=== PATIENT | female | born 1965 | race Caucasian/White ===

== ENCOUNTER 2020-09-27 09:59 | Inpatient (IN) | payer OTHER, MEDICARE ==
[~2020-09-27] VITALS: Ht 160 cm; Wt 59.4 kg
[2020-09-27] MEDS ORDERED: ONDANSETRON HCL 4 MG/2 ML VIAL IV ONE (10:30)
[2020-09-27] MEDS ORDERED: NITROGLYCERIN 0.4 MG SL TAB SL ONE (10:30)
[2020-09-27] MEDS ORDERED: MORPHINE SULFATE 4 MG/ML SYR/VIAL IV ONE (10:30)
[2020-09-27 10:44] LABS: Basophils # (auto) 0 10 ^3/uL (0-0.2); Basophils % (auto) 0.6 % (0.0-2.0); Eosinophils # (auto) 0.1 10 ^3/uL (0-0.8); Eosinophils % (auto) 0.8 % (0.0-7.0); Hematocrit 41.9 % (36.0-46.0); Hemoglobin 14.2 g/dL (12.2-16.2); Lymphocytes # (auto) 2.1 10 ^3/uL (0.4-5.4); Lymphocytes % (auto) 26.3 % (10.0-50.0); Mean Corpuscular Hemoglobin 33.8 pg (28.0-32.0); Mean Corpuscular Volume 99.4 fL (80.0-100.0); Monocytes # (auto) 0.5 10 ^3/uL (0-1.3); Monocytes % (auto) 6.6 % (0.0-12.0); Neutrophils # (auto) 5.2 10 ^3/uL (1.6-8.6); Neutrophils % (auto) 65.7 % (37.0-80.0); Platelet Count (auto) 256 10^3/uL (140-450); Red Blood Cells 4.22 10^6/uL (4.0-5.20); Red Cell Distribution Width 13.2 % (11.8-14.3); White Blood Cell 7.9 10^3/uL (4.4-10.8)
[2020-09-27 10:58] LABS: Albumin 3.6 g/dL (3.4-5.0); Calcium 7.4 mg/dL (8.5-10.1); Potassium 3.7 mmol/L (3.5-5.1)
[2020-09-27 11:02] LABS: INR 0.97 (0.9-1.15); Partial Thromboplastin Time 26.4 sec (23.0-31.2)
[2020-09-27 11:03] LABS: BUN/Creatinine Ratio 13.5; Bilirubin, Total 0.5 mg/dL (0.2-1.0); Total Protein 7.4 g/dL (6.4-8.2)
[2020-09-27] MEDS ORDERED: IOHEXOL 350 MG/ML 100ML IJ ONE (11:17)
[2020-09-27] MEDS ORDERED: NITROGLYCERIN 50MG/250ML 250 ML IV ONE (11:30)
[2020-09-27 12:48] LABS: Urine Bacteria NONE SEEN /hpf (None Seen); Urine Blood Negative /uL (Negative); Urine WBC <1 /hpf (0 - 5)
[2020-09-27 12:59] LABS: Urine Specific Gravity > 1.050 (1.001-1.035)
[2020-09-27] MEDS ORDERED: NICOTINE 21MG/24 HR TOPICAL PATCH TD ONE (14:30)
[2020-09-27] MEDS ORDERED: HYDROcodone-ACET 5/325MG TAB PO ONE (16:15)
[2020-09-27] MEDS ORDERED: hydrALAZINE HCL 20 MG/ML VL IV PRN (16:30)
[2020-09-27] MEDS ORDERED: MORPHINE SULF INJ 2 MG/ML SYRINGE 1ML IV PRN (16:30)
[2020-09-27] MEDS ORDERED: HYDROcodone-ACET 5/325MG TAB PO PRN (16:30)
[2020-09-27] MEDS ORDERED: ACETAMINOPHEN 500 MG TAB PO PRN (16:30)
[2020-09-27] MEDS ORDERED: NITROGLYCERIN 0.4 MG SL TAB SL PRN (16:30)
[2020-09-27] MEDS ORDERED: TEMAZEPAM 15 MG CAP PO PRN (16:30)
[2020-09-27] MEDS: NITROGLYCERIN 50MG/250ML 250 ML IV SCH (16:34)
[2020-09-27 17:13] LABS: CRP High Sensitivity 0.38 mg/dL (< 0.3)
[2020-09-27] MEDS: MORPHINE SULF INJ 2 MG/ML SYRINGE 1ML IV PRN (19:01)
[2020-09-27] MEDS: ONDANSETRON HCL 4 MG/2 ML VIAL IV PRN (19:01)
[2020-09-27] MEDS: METOPROLOL TARTRATE 25 MG TAB PO SCH (21:36)
[2020-09-27] MEDS ORDERED: ATORVASTATIN 20 MG TAB PO SCH (22:00)
[2020-09-28 06:02] LABS: Basophils # (auto) 0 10 ^3/uL (0-0.2); Mean Corpuscular Hemoglobin 35.3 pg (28.0-32.0)
[2020-09-28 06:07] LABS: Basophils % (auto) 0.5 % (0.0-2.0); Eosinophils # (auto) 0 10 ^3/uL (0-0.8); Eosinophils % (auto) 0.6 % (0.0-7.0); Hematocrit 42.3 % (36.0-46.0); INR 0.98 (0.9-1.15); Lymphocytes # (auto) 1.4 10 ^3/uL (0.4-5.4); Lymphocytes % (auto) 16.5 % (10.0-50.0); Mean Corpuscular Hgb Conc. 35.4 g/dL (32.0-36.0); Mean Corpuscular Volume 99.8 fL (80.0-100.0); Monocytes # (auto) 0.4 10 ^3/uL (0-1.3); Neutrophils # (auto) 6.4 10 ^3/uL (1.6-8.6); Neutrophils % (auto) 77.4 % (37.0-80.0); Partial Thromboplastin Time 26.5 sec (23.0-31.2); Platelet Count (auto) 233 10^3/uL (140-450); Red Blood Cells 4.24 10^6/uL (4.0-5.20); Red Cell Distribution Width 13.4 % (11.8-14.3); White Blood Cell 8.3 10^3/uL (4.4-10.8)
[2020-09-28 06:13] LABS: Calcium 7.7 mg/dL (8.5-10.1); Potassium 4.2 mmol/L (3.5-5.1)
[2020-09-28 06:15] LABS: BUN/Creatinine Ratio 17.9
[2020-09-28] MEDS ORDERED: FAMOTIDINE 20 MG TAB PO SCH (10:00)
[2020-09-28] MEDS ORDERED: ASPirin-EC 81 mg tab PO SCH (10:00)
[2020-09-28] MEDS ORDERED: LISINOPRIL 10 MG TAB PO SCH (10:00)
[2020-09-28] MEDS: METOPROLOL TARTRATE 25 MG TAB PO SCH (10:37)
[2020-09-28] MEDS: ONDANSETRON HCL 4 MG/2 ML VIAL IV PRN (10:38)
[2020-09-28] MEDS: MORPHINE SULF INJ 2 MG/ML SYRINGE 1ML IV PRN (10:39)
[2020-09-28] MEDS ORDERED: NICOTINE 21MG/24 HR TOPICAL PATCH TD ONE (13:30)
[2020-09-28] MEDS ORDERED: HYDROcodone-ACET 10/325MG TAB PO PRN (14:45)
[2020-09-28] MEDS: NITROGLYCERIN 50MG/250ML 250 ML IV SCH (16:30)
[2020-09-28] MEDS ORDERED: ALBUTEROL SULF 2.5 MG/0.5ML(0.5%) NEB SOLN NEB PRN (17:15)
[2020-09-28 17:17] VITALS: BP 143/88
[2020-09-28 18:50] VITALS: BP 120/79
[2020-09-29] MEDS ORDERED: NICOTINE 21MG/24 HR TOPICAL PATCH TD SCH (10:00)
== END 2020-09-28 18:58 | disposition short-term general hospital (02) | DRG 305 ==
LOC: EDBD 10:00 → ER 10:00 → TELE 16:22
PROVIDERS: ADMIT Nurse Practitioner Acute Care; ATTEND Internal Medicine
DX: I16.9 Hypertensive crisis, unspecified (principal); J98.11 Atelectasis; M06.9 Rheumatoid arthritis, unspecified; M32.9 Systemic lupus erythematosus, unspecified; G89.4 Chronic pain syndrome; J43.9 Emphysema, unspecified; E78.5 Hyperlipidemia, unspecified; E11.9 Type 2 diabetes mellitus without complications; Z20.822 Contact with and (suspected) exposure to COVID-19; I10 Essential (primary) hypertension; Z86.16 Personal history of COVID-19; Z86.73 Personal history of transient ischemic attack (TIA), and cerebral infarction without residual deficits; Z87.01 Personal history of pneumonia (recurrent); Z72.0 Tobacco use
CPT/HCPCS: 36415; 71045; 71275; 80048; 80053; 80061; 81001; 83880; 84484; 85025; 85610; 85652; 85730; 86141; 87426; 93005; 93306; 96374; 96375; G0378; J2405

== ENCOUNTER 2024-07-07 16:20 | Emergency (ER) | payer MEDICARE, MEDICAID ==
[~2024-07-07] VITALS: Ht 170.2 cm; Wt 68.2 kg
--- NOTE | 2024-07-07 17:22 | ED.PDOC ---
Altered Mental Status HPI Comments 58 year old female ROMULO presents to the ED with chief complaint of ETOH intoxication. EMS reports that the patient had been acting erratic and odd with family at home, noting that the patient was drunk. EMS relays S.O. was on scene prior to their arrival, being called by him due to the patient's condition. EMS states that the patient initially only appeared drunk and they were going to leave, when they were called back by the S.O. for a 5150 hold due to patient and family stating that she is going to drink herself to . Patient aggressive and verbalizing wishing to leave the ED and go home. EMS denies any further questions at this time. Chief Complaint: ETOH Time Seen by MD: 17:19 Primary Care Provider: AMITA Evans Notes: Nurses Notes, Ventilating Expert Notes, Medications, Allergies Allergies: Coded Allergies: NO KNOWN ALLERGIES (Unverified , 09/22/12) Information Source: Patient, Emergency Med Personnel Mode of Arrival: EMS Severity: Severe Timing: Hours Duration: Since onset Prehospital treatment: None Quality: Change in Behavior Recent: Medication/Drug Abuse (ETOH abuse) History of: None Past Medical History PAST MEDICAL HISTORY: COPD, High Lipids, HTN, [place] Surgical History: Denies all surgeries JEWEL HOLE GAUGER History: No Pertinent JEWEL HOLE GAUGER History Family History Family History: Reviewed,noncontributory to illness Social History Smoker: Cigarettes, Greater Than 1 Pack/Day Alcohol: Heavy Drugs: Denies Drug Use Lives In: Home Constitutional: denies: chills, diaphoresis, fatigue, fever, malaise, sweats, weakness, others EENTM: denies: blurred vision, double vision, ear bleeding, ear discharge, ear drainage, ear pain, ear ringing, eye pain, eye redness, hearing loss, mouth pain, mouth swelling, nasal discharge, nose bleeding, nose congestion, nose pain, photophobia, tearing, throat pain, throat swelling, voice changes, others Respiratory: denies: cough, hemoptysis, orthopnea, SOB at rest, shortness of breath, SOB with excertion, stridor, wheezing, others Cardiovascular: denies: chest pain, dizzy spells, diaphoresis, Dyspnea on exertion, edema, irregular heart beat, left arm pain, lightheadedness, palpitations, PND, syncope, others Gastrointestinal: denies: abdomen distended, abdominal pain, blood streaked bowels, constipated, diarrhea, dysphagia, difficulty swallowing, hematemesis, melena, nausea, poor appetite, poor fluid intake, rectal bleeding, rectal pain, vomiting, others Genitourinary: denies: abnormal vagina bleeding, burning, dyspareunia, dysuria, flank pain, frequency, hematuria, incontinence, pain, , vagina discharge, urgency, others Neurological: denies: dizziness, fainting, headache, left sided numbness, left sided weakness, numbness, paresthesia, pre-existing deficit, right sided numbness, right sided weakness, seizure, speech problems, tingling, tremors, weakness, others Musculoskeletal: denies: back pain, gout, joint pain, joint swelling, muscle pain, muscle stiffness, neck pain, others Integumetry: denies: bruises, change in color, change in hair/nails, dryness, laceration, lesions, lumps, rash, wounds, others Allergic/Immunocompromised: denies: Difficulty Healing, Frequent Infections, H jose alfredo, Itching, others Hematologic/Lymphatic: denies: anemia, blood clots, easy bleeding, easy bruising, swollen glands, others Endocrine: denies: excessive hunger, excessive sweating, excessive thirst, excessive urination, flushing, intolerance to cold, intolerance to heat, unexplained weight gain, unexplained weight loss, others Psychiatric: denies: anxiety, bipolar disorder, depression, hopeless, panic disorder, schizophrenia, sleepless, suicidal, others Unable to Obtain due to: Altered Mental Status All Other Systems: Reviewed and Negative Physical Exam General Appearance: Moderate Distress, Normal, Other (Altered, inebriated) HEENT: Normal ENT Inspection, PERRL/EOMI Neck: Full Range of Motion, Non-Tender, Normal, Normal Inspection Respiratory: Chest Non-Tender, Lungs Clear, No Accessory Muscle Use, No Respiratory Distress, Normal Breath Sounds Cardiovascular: No Edema, No JVD, No Murmur, No Gallop, Normal Peripheral Pulses, Regular Rate/Rhythm Breast Exam: Deferred Gastrointestinal: No Organomegaly, Non Tender, No Pulsatile Mass, Normal Bowel Sounds, Soft Genitalia: Deferred Pelvic: Deferred Rectal: Deferred Extremities: No calf tenderness, Normal capillary refill, Normal inspection, Normal range of motion, Non-tender, No pedal edema Musculoskeletal : Apperance: Normal Neurologic: Alert, e tailer II-XII nml as Tested, No Motor Deficits, Normal Affect, Normal Mood, No Sensory Deficits Cerebellar Function: Normal Reflexes: Normal Skin: Dry, Normal Color, Warm Lymphatic: No Adenopathy Was a procedure done? Was a procedure done?: No Differential Diagnosis (ALOC) Differential Diagnosis: ETOH Intoxication Other Differential Diagnosis Suicide ideation, schizophrenia, major depressive disorder X-Ray, Labs, Meds, VS Vital Signs Date Time Temp Pulse Resp B/P (MAP) Pulse Ox O2 Delivery O2 Flow Rate FiO2 07/07/24 23:53 100 22 93 Room Air* 0 21 07/07/24 23:51 98.2 100 22 93/46 (62) 93 98.2 07/07/24 16:20 98.3 101 20 116/79 (91) 96 Lab Test 07/07/24 17:54 Range/Units White Blood Count 3.1 L 4.4-10.8 10^3/uL Red Blood Count 4.39 4.0-5.20 10^6/uL Hemoglobin 13.8 12.2-16.2 g/dL Hematocrit 42.1 36.0-46.0 % Mean Corpuscular Volume 95.9 80.0-100.0 fL Mean Corpuscular Hemoglobin 31.5 28.0-32.0 pg Mean Corpuscular Hemoglobin Concent 32.8 32.0-36.0 g/dL Red Cell Distribution Width 16.6 H 11.8-14.3 % Platelet Count 246 140-450 10^3/uL Mean Platelet Volume 7.3 6.9-10.8 fL Neutrophils (%) (Auto) 36.8 L 37.0-80.0 % Lymphocytes (%) (Auto) 50.1 H 10.0-50.0 % Monocytes (%) (Auto) 9.7 0.0-12.0 % Eosinophils (%) (Auto) 2.5 0.0-7.0 % Basophils (%) (Auto) 0.9 0.0-2.0 % Neutrophils # (Auto) 1.2 L 1.6-8.6 10 ^3/uL Lymphocytes # (Auto) 1.6 0.4-5.4 10 ^3/uL Monocytes # (Auto) 0.3 0-1.3 10 ^3/uL Eosinophils # (Auto) 0.1 0-0.8 10 ^3/uL Basophils # (Auto) 0 0-0.2 10 ^3/uL Nucleated Red Blood Cells 0.3 % Sodium Level 141 136-145 mmol/L Potassium Level 4.0 3.5-5.1 mmol/L Chloride Level 102 98-107 mmol/L Carbon Dioxide Level 30 20-31 mmol/L Anion Gap 9 5-15 Blood Urea Nitrogen 8 L 9-23 mg/dL Creatinine 0.71 0.550-1.02 mg/dL Glomerular Filtration Rate Calc 97 >90 mL/min BUN/Creatinine Ratio 11.3 10.0-20.0 Serum Glucose 98 74-106 mg/dL Calcium Level 8.1 L 8.7-10.4 mg/dL Total Bilirubin 0.2 0.2-1.0 mg/dL Aspartate Amino Transferase (AST) 88 H 13-40 U/L Alanine Aminotransferase (ALT) 64 H 7-40 U/L Alkaline Phosphatase 169 H 46-116 U/L Total Protein 7.0 5.7-8.2 g/dL Albumin 4.4 3.2-4.8 g/dL Plasma/Serum Blood Alcohol 275.8 H <10 mg/dL Current Medications Medications (Trade) Dose Ordered Sig/Alexy Route Start Time Stop Time Status Last Admin Sodium Chloride 1,000 ml @ 1,000 mls/hr Q1H ONCE IV 07/07/24 17:00 07/07/24 17:59 DC 07/08/24 00:05 Haloperidol Lactate (Haldol) 5 mg ONCE ONCE IM 07/07/24 18:15 07/07/24 18:16 DC 07/07/24 20:35 Diphenhydramine HCl (Benadryl Injection) 25 mg ONCE ONCE IM 07/07/24 18:15 07/07/24 18:16 DC 07/07/24 20:36 X-Ray, Labs, Meds, VS Comment Imaging: X-rays and CT scans were reviewed and interpreted by this provider, imaging shows no fractures and no pathological disease. Pending radiology review. Laboratory: Labs reviewed and interpreted by this provider. No significant abnormalities noted. Patient has prior medical visits reviewed. Med reconciliation performed Vital signs reviewed Time of 1ST Reevaluation: 18:19 Reevaluation 1ST: Unchanged Patient Education/Counseling: Diagnosis, Treatment Family Education/Counseling: No Family Present Departure 1 Departure Time of Disposition: 00:30 Impression: Primary Impression: ETOH abuse Additional Impressions: Suicide ideation Major depressive disorder Qualified Codes: F33.1 - Major depressive disorder, recurrent, moderate [facility] Condition: Stable Discharged With: Self Comments Patient is currently on 5150 hold from [facility] Tender's office, patient [facility] Critical Care Note Critical Care Time?: No Stability Stability form required: No Heart Score Heart Score: Heart Score Response (Comments) Value History N/A 0 EKG N/A 0 Age N/A 0 Risk Factors N/A 0 Troponin N/A 0 Total 0 I personally scribed for VARUN TALAVERA CPR AMBULANCE DRIVER ([email or web address]) on 07/07/24 at 17:22. Electronically submitted by Lee Mendiola ([email or web address]). I personally scribed for VARUN TALAVERA [employer] AMBULANCE DRIVER ([email or web address]) on 07/07/24 at 17:23. Electronically submitted by Lee Mendiola ([email or web address]). VARUN TALAVERA [employer] AMBULANCE DRIVER Jul 07, 2024 17:22
[2024-07-07 18:53] LABS: Basophils # (auto) 0 10 ^3/uL (0-0.2); Basophils % (auto) 0.9 % (0.0-2.0); Eosinophils # (auto) 0.1 10 ^3/uL (0-0.8); Eosinophils % (auto) 2.5 % (0.0-7.0); Hematocrit 42.1 % (36.0-46.0); Hemoglobin 13.8 g/dL (12.2-16.2); Lymphocytes # (auto) 1.6 10 ^3/uL (0.4-5.4); Lymphocytes % (auto) 50.1 % (10.0-50.0); Mean Corpuscular Hemoglobin 31.5 pg (28.0-32.0); Mean Corpuscular Hgb Conc. 32.8 g/dL (32.0-36.0); Mean Corpuscular Volume 95.9 fL (80.0-100.0); Monocytes # (auto) 0.3 10 ^3/uL (0-1.3); Monocytes % (auto) 9.7 % (0.0-12.0); Neutrophils # (auto) 1.2 10 ^3/uL (1.6-8.6); Neutrophils % (auto) 36.8 % (37.0-80.0); Nucleated Red Blood Cells % 0.3 %; Platelet Count (auto) 246 10^3/uL (140-450); Red Blood Cells 4.39 10^6/uL (4.0-5.20); Red Cell Distribution Width 16.6 % (11.8-14.3); White Blood Cell 3.1 10^3/uL (4.4-10.8)
[2024-07-07 19:24] LABS: Albumin 4.4 g/dL (3.2-4.8); Anion Gap 9 (5-15); BUN/Creatinine Ratio 11.3 (10.0-20.0); Blood Alcohol 275.8 mg/dL (<10); Carbon Dioxide 30 mmol/L (20-31); Chloride 102 mmol/L (98-107); Glucose 98 mg/dL (74-106); Sodium 141 mmol/L (136-145)
[2024-07-07 19:27] LABS: Alanine Aminotransferase 64 U/L (7-40); Alkaline Phosphatase 169 U/L (46-116); Aspartate Aminotransferase 88 U/L (13-40); Bilirubin, Total 0.2 mg/dL (0.2-1.0); Blood Urea Nitrogen 8 mg/dL (9-23); Calcium 8.1 mg/dL (8.7-10.4)
[2024-07-07] MEDS: HALOPERIDOL LACTATE 5 MG/ML INJ VIAL IM ONE (20:35)
[2024-07-07] MEDS: diphenhdrAMINE HCL 50 MG/1 ML VL IM ONE (20:36)
[2024-07-07 23:53] VITALS: PULSE 100; RESP 22; O2SAT 93
[2024-07-08] MEDS: SODIUM CHLORIDE 0.9% 1,000 ML IV ONE ×2 (00:05→02:26)
[2024-07-08] MEDS: OXYCODONE W/ ACETAMINOPHEN 5/325MG TABLET PO ONE (01:19)
[2024-07-08] MEDS: ONDANSETRON HCL 4 MG/2 ML VIAL IV ONE (01:19)
[2024-07-08] MEDS: LORazepam 2MG/ML-1ML VIAL IV ONE ×2 (02:26→08:43)
[2024-07-08 11:00] VITALS: RESP 20; O2SAT 93
[2024-07-08] MEDS: HYDROcodone-ACET 10/325MG TAB PO ONE (11:41)
[2024-07-08 15:20] VITALS: BP 156/93; PULSE 110; RESP 18; TEMP 97.8; O2SAT 95
== END 2024-07-08 15:30 | disposition short-term general hospital (02) ==
LOC: EDUNIT# 16:20 → EDBD 16:20 → ER 16:27
DX: F10.129 Alcohol abuse with intoxication, unspecified (principal); R45.851 Suicidal ideations; F32.9 Major depressive disorder, single episode, unspecified; J44.9 Chronic obstructive pulmonary disease, unspecified; E78.5 Hyperlipidemia, unspecified; I10 Essential (primary) hypertension; I25.2 Old myocardial infarction; F17.210 Nicotine dependence, cigarettes, uncomplicated; Y90.8 Blood alcohol level of 240 mg/100 ml or more
CPT/HCPCS: 36415; 80053; 80320; 82962; 85025; 96361; 96372; 96374; 96375; 96376; 99285; J1200; J1630; J2060; J2405; J7030